=== PATIENT | male | born 1995 | race Caucasian/White ===

== ENCOUNTER 2017-02-14 19:35 | Inpatient (IN) | payer OTHER ==
[~2017-02-14] VITALS: Ht 170.2 cm; Wt 70.9 kg
[2017-02-14 20:00] VITALS: Ht 170.2 cm; Wt 70.9 kg
[2017-02-14 20:55] VITALS: BP 120/61; RESP 18
[2017-02-14] MEDS ORDERED: ACETAMINOPHEN 325 MG TAB PO PRN (21:30)
[2017-02-14] MEDS ORDERED: BISACODYL 10 MG SUPP PR PRN (21:30)
[2017-02-14] MEDS ORDERED: MAGNESIUM HYDROXIDE 30ML CUP PO PRN ×2 (21:30)
[2017-02-14] MEDS ORDERED: DEXTROSE 50% 50 ML SYRINGE IV PRN ×2 (21:30)
[2017-02-14] MEDS ORDERED: GLUCOSE GEL 15 GRAM TUBE PO PRN ×2 (21:30)
[2017-02-14] MEDS ORDERED: GLUCOSE GEL 15 GRAM TUBE BUCCAL PRN (21:30)
[2017-02-14] MEDS ORDERED: CARBOXYMETHYLCELLULOSE 0.5% 0.1 ML OPH BOTH EYES PRN (21:30)
[2017-02-14] MEDS ORDERED: NA PHOSPHATE/BIPHOS 133 ML ENEMA PR PRN (21:30)
[2017-02-14] MEDS ORDERED: GLUCAGON 1 MG INJ IM PRN (21:30)
[2017-02-14] MEDS: oxyCODONE 5 MG TAB PO PRN (21:45)
[2017-02-14] MEDS: Insulin NOVOLOG SS MILD Algorithm (SS with meals and bedtime) SC SCH (21:51)
[2017-02-14 22:29] LABS: ADD UMIC NO; UR BILIRUBIN (Dip) NEGATIVE (NEGATIVE); UR BLOOD (Dip) NEGATIVE (NEGATIVE); UR CLARITY CLEAR (CLEAR); UR COLOR LT. YELLOW (YELLOW); UR GLUCOSE (Dip) NEGATIVE (NEGATIVE); UR KETONES (Dip) NEGATIVE (NEGATIVE); UR LEUKOCYTE ESTERASE (Dip) NEGATIVE (NEGATIVE); UR NITRITE (Dip) NEGATIVE (NEGATIVE); UR TOTAL PROTEIN (Dip) NEGATIVE (NEGATIVE); UR UROBILINOGEN (Dip) 0.2 E.U./dL (0.1-1.0)
[2017-02-14] MEDS: HEPARIN 5,000 UNIT/0.5 ML VIAL SC SCH (22:56)
[2017-02-14] MEDS: SENNA TAB PO SCH (22:58)
[2017-02-14] MEDS: DOCUSATE SODIUM 100 MG CAP PO SCH (22:58)
[2017-02-15] MEDS ORDERED: ACCUCHECK AT 2AM (Patients on SS coverage) XX SCH (02:00)
[2017-02-15 06:55] LABS: ADD SCAN DIFF NO
[2017-02-15] MEDS ORDERED: Insulin NOVOLOG SS MILD Algorithm (SS with meals and bedtime) SC SCH (07:05)
[2017-02-15] MEDS: Insulin NOVOLOG SS MILD Algorithm (SS with meals and bedtime) SC SCH ×3 (07:05→17:05)
[2017-02-15 07:15] LABS: BASOPHILS % 0.4 % (0.0-2.0); EOSINOPHILS # 0.1 10^3/ul (0.0-0.5); HEMATOCRIT 38.5 % (42.0-52.0); HEMOGLOBIN 12.8 g/dl (14.0-18.0); LYMPHOCYTES # 1.3 10^3/ul (0.8-2.9); LYMPHOCYTES % 26.1 % (15.0-51.0); MEAN CORPUSCULAR HEMOGLOBIN 30.8 pg (29.0-33.0); MEAN CORPUSCULAR HGB CONC 33.2 g/dl (32.0-37.0); MEAN CORPUSCULAR VOLUME 92.8 fl (82.0-101.0); MEAN PLATELET VOLUME 9.7 fl (7.4-10.4); MONOCYTE # 0.7 10^3/ul (0.3-0.9); MONOCYTES % 12.9 % (0.0-11.0); NEUTROPHIL # 2.9 10^3/ul (1.6-7.5); NEUTROPHILS % 58.2 % (39.0-77.0); PLATELET COUNT 398 10^3/UL (140-415); RED BLOOD COUNT 4.15 10^6/ul (4.70-6.10); RED CELL DISTRIBUTION WIDTH 13.6 % (11.5-14.5); WHITE BLOOD COUNT 5.1 10^3/ul (4.8-10.8)
[2017-02-15 07:38] LABS: ALBUMIN 4.8 g/dl (3.3-4.9); ALBUMIN/GLOBULIN RATIO 1.6; BILIRUBIN,INDIRECT 0.3 mg/dl (0-1.1); BILIRUBIN,TOTAL 0.3 mg/dl (0.2-1.3); CALCIUM 9.8 mg/dl (8.4-10.2); CREATININE 0.81 mg/dl (0.61-1.24); POTASSIUM 4.6 mmol/L (3.5-5.1); TOTAL PROTEIN 7.8 g/dl (6.1-8.1)
[2017-02-15 08:21] VITALS: BP 120/65; RESP 18
[2017-02-15] MEDS: DOCUSATE SODIUM 100 MG CAP PO SCH ×2 (08:47→21:20)
[2017-02-15] MEDS: PSYLLIUM 28% PACKET PO SCH ×2 (08:48→21:21)
[2017-02-15] MEDS: HEPARIN 5,000 UNIT/0.5 ML VIAL SC SCH ×2 (08:49→21:26)
[2017-02-15] MEDS: LACTULOSE 30ML CUP PO PRN (08:49)
[2017-02-15] MEDS: oxyCODONE 5 MG TAB PO PRN ×2 (08:49→16:51)
[2017-02-15] MEDS ORDERED: HEPARIN 5,000 UNIT/0.5 ML VIAL SC SCH (09:00)
[2017-02-15] MEDS ORDERED: DOCUSATE SODIUM 100 MG CAP PO SCH (09:00)
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
--- NOTE | 2017-02-15 17:40 | QN ---
Documentation Comment [id number] Perez MD Feb 15, 2017 17:40
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
[2017-02-15 20:00] VITALS: BP 126/68; RESP 18
[2017-02-15] MEDS ORDERED: SENNA TAB PO SCH (21:00)
[2017-02-15] MEDS: SENNA TAB PO SCH (21:20)
[2017-02-15] MEDS: FERROUS SULFATE (EC) 325 MG TAB PO SCH (21:20)
[2017-02-16] MEDS: LACTULOSE 30ML CUP PO PRN (08:25)
[2017-02-16] MEDS: PSYLLIUM 28% PACKET PO SCH ×2 (08:25→21:00)
[2017-02-16] MEDS: HEPARIN 5,000 UNIT/0.5 ML VIAL SC SCH ×2 (08:25→21:37)
[2017-02-16] MEDS: DOCUSATE SODIUM 100 MG CAP PO SCH ×2 (08:25→21:00)
[2017-02-16] MEDS: oxyCODONE 5 MG TAB PO PRN ×4 (08:26→21:46)
[2017-02-16] MEDS: FERROUS SULFATE (EC) 325 MG TAB PO SCH ×3 (08:26→21:35)
[2017-02-16] MEDS: ERGOCALCIFEROL 50,000 UNIT CAP PO SCH (08:26)
[2017-02-16] MEDS ORDERED: POLYETHYLENE GLYCOL 17 GM PACKET PO PRN (10:30)
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
[2017-02-16 19:34] VITALS: BP 124/59; RESP 18
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
[2017-02-16] MEDS: SENNA TAB PO SCH (21:00)
[2017-02-16] MEDS ORDERED: ARTIFICIAL TEARS 15 ML OPH BOTH EYES PRN (23:00)
[2017-02-17 07:30] VITALS: BP 111/64; RESP 18
[2017-02-17] MEDS: oxyCODONE 5 MG TAB PO PRN ×2 (07:53→17:02)
[2017-02-17] MEDS: PSYLLIUM 28% PACKET PO SCH ×2 (09:00→20:17)
[2017-02-17] MEDS: DOCUSATE SODIUM 100 MG CAP PO SCH ×2 (09:21→20:16)
[2017-02-17] MEDS: FERROUS SULFATE (EC) 325 MG TAB PO SCH ×3 (09:21→20:17)
[2017-02-17] MEDS: HEPARIN 5,000 UNIT/0.5 ML VIAL SC SCH ×2 (09:27→20:25)
--- NOTE | 2017-02-17 11:57 | CONS ---
Date/Time of Note Date/Time of Note DATE: 02/17/17 TIME: 11:56 Consult Date/Type/Reason Admit Date/Time Feb 14, 2017 at 19:53 Objective Vital Signs Date Time Temp Pulse Resp B/P Pulse Ox O2 Delivery O2 Flow Rate FiO2 02/16/17 19:34 98.5 75 18 124/59 97 Intake and Output 02/16/17 02/16/17 02/17/17 14:59 22:59 06:59 Intake Total 960 ml 600 ml 300 ml Output Total 600 ml 350 ml 950 ml Balance 360 ml 250 ml -650 ml INTERDISCIPLINARY TEAM CONFERENCE BOWEL- Cont BLADDER-Cont OT- DRESSING-cga BATHING-cga TOILETING-cga PT- BED MOBILITY-cga TRANSFERS-min AMBULATION-min SPEECH- COGNITION-mod A/P- Interdisciplinary team conference held today. Please see interdisciplinary sheet. Working toward d.cRosanne on 02/23 with post discharge follow up of physical therapy, occupational therapy. Results/Medications Result Diagram: 02/15/1761902/15/17619 Results 24 hrs Laboratory Tests Test 02/17/17 06:20 Hemoglobin A1c 5.4 Medications Current Medications Miscellaneous Information 1 ea NOTE XX ; Start 02/14/17 at 21:30 Acetaminophen (Tylenol Tab) 650 mg Q6H PRN PO FOR MILD PAIN,SANDHU,FEVER>101.3F; Start 02/14/17 at 21:30 Bisacodyl (Dulcolax Supp) 10 mg DAILY PRN [place] CONSTIPATION; Start 02/14/17 at 21 :30 Eye Lubricant (Refresh Plus) 1 drop TID PRN BOTH EYES FOR DRY EYES; Start 02/14 at 21:30 Ergocalciferol (Drisdol) 50,000 unit We@09 PO Last administered on 02/16/17 08 :26; Admin Dose 50,000 UNIT; Start 02/16/17 at 09:00 Hydromorphone HCl (Dilaudid) 1 mg Q4H PRN IV FOR BREAKTHRU PAIN ONLY; Start 08/21 at 21:30 Lactulose (Enulose) 20 gm DAILY PRN PO CONSTIPATION Last administered on 08:25; Admin Dose 20 GM; Start 02/14/17 at 21:30 Magnesium Hydroxide (Milk Of Mag) 30 ml DAILY PRN PO CONSTIPATION; Start at 21:30 Oxycodone HCl (Roxicodone) 5 mg Q4H PRN PO MILD PAIN LEVEL 1-3 Last administered on 02/16/17 15:35; Admin Dose 5 MG; Start 02/14/17 at 21:30 Oxycodone HCl (Roxicodone) 10 mg Q4H PRN PO MODERATE PAIN Last administered on 02/17/17 07:53; Admin Dose 10 MG; Start 02/14/17 at 21:30 Oxycodone HCl (Roxicodone) 15 mg Q4H PRN PO SEVERE PAIN Last administered on 08:26; Admin Dose 15 MG; Start 02/14/17 at 21:30; Status Future Hold Psyllium Hydrophilic Mucilloid (Metamucil) 1 pkt BID PO Last administered on 08:25; Admin Dose 1 PKT; Start 02/15/17 at 09:00 Sodium Biphosphate/ Sodium Phosphate (Fleet Enema) 133 ml DAILY PRN [place] CONSTIPATION; Start 02/14/17 at 21:30 Docusate Sodium (Colace) 100 mg BID PO Last administered on 02/17/17 09:21; Admin Dose 100 MG; Start 02/14/17 at 21:52 Senna (Senokot) 1 tab HS PO Last administered on 02/15/17 21:20; Admin Dose 1 TAB; Start 02/14/17 at 22:37 Heparin Sodium (Porcine) (Heparin (5000 Units/0.5 ml)) 5,000 unit Q12 SC Last administered on 02/17/17 09:27; Admin Dose 5,000 UNIT; Start 02/14/17 at 22:37 Ferrous Sulfate (Ferrous Sulfate (Ec)) 325 mg TID PO Last administered on 09:21; Admin Dose 325 MG; Start 02/15/17 at 21:00 Polyethylene Glycol (Miralax) 17 gm DAILY PRN PO CONSTIPATION; Start 02/16/17 at 10:30 Eye Lubricant (Artificial Tears Oph) 2 drop Q4H PRN BOTH EYES DRY EYES; Start 02/16/17 at 23:00 AURORA ZUÑIGA MD Feb 17, 2017 11:57
[2017-02-17] MEDS ORDERED: HYDROmorphONE 1 MG/ML SYG IV STA (17:12)
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
[2017-02-17 20:00] VITALS: BP 125/69; RESP 18
[2017-02-17] MEDS: SENNA TAB PO SCH (20:16)
[2017-02-18 07:57] LABS: ALBUMIN 4.2 g/dl (3.3-4.9); ALBUMIN/GLOBULIN RATIO 1.5; BILIRUBIN,INDIRECT 0.2 mg/dl (0-1.1); BILIRUBIN,TOTAL 0.2 mg/dl (0.2-1.3); CALCIUM 9.8 mg/dl (8.4-10.2); CREATININE 0.89 mg/dl (0.61-1.24); POTASSIUM 4.2 mmol/L (3.5-5.1)
[2017-02-18 08:00] VITALS: BP 119/70; PULSE 83; RESP 21
[2017-02-18] MEDS: PSYLLIUM 28% PACKET PO SCH ×2 (09:17→20:37)
[2017-02-18] MEDS: DOCUSATE SODIUM 100 MG CAP PO SCH ×2 (09:17→20:37)
[2017-02-18] MEDS: FERROUS SULFATE (EC) 325 MG TAB PO SCH ×3 (09:17→20:37)
[2017-02-18] MEDS: HEPARIN 5,000 UNIT/0.5 ML VIAL SC SCH ×2 (09:18→20:37)
[2017-02-18] MEDS: HYDROmorphONE 1 MG/ML SYG IV PRN ×2 (09:18→20:32)
[2017-02-18] MEDS: oxyCODONE 5 MG TAB PO PRN ×2 (09:43→16:35)
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
[2017-02-18] MEDS: LIDOCAINE 5% PATCH TD PRN (12:47)
[2017-02-18] MEDS: SENNA TAB PO SCH (20:37)
[2017-02-18 21:08] VITALS: BP 116/60; RESP 18
[2017-02-19 07:30] VITALS: BP 113/69; RESP 18
[2017-02-19] MEDS: PSYLLIUM 28% PACKET PO SCH ×2 (09:00→20:50)
[2017-02-19] MEDS: DOCUSATE SODIUM 100 MG CAP PO SCH ×2 (09:00→20:50)
[2017-02-19] MEDS: HEPARIN 5,000 UNIT/0.5 ML VIAL SC SCH ×2 (09:49→20:58)
[2017-02-19] MEDS: FERROUS SULFATE (EC) 325 MG TAB PO SCH ×3 (09:49→20:50)
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
[2017-02-19 19:44] VITALS: BP 108/63; RESP 18
[2017-02-19] MEDS: HYDROmorphONE 1 MG/ML SYG IV PRN (20:45)
[2017-02-19] MEDS: SENNA TAB PO SCH (20:59)
[2017-02-20] MEDS: HYDROmorphONE 1 MG/ML SYG IV PRN ×3 (06:49→20:10)
[2017-02-20] MEDS: DOCUSATE SODIUM 100 MG CAP PO SCH ×2 (08:48→20:13)
[2017-02-20] MEDS: FERROUS SULFATE (EC) 325 MG TAB PO SCH ×3 (08:48→20:13)
[2017-02-20] MEDS: PSYLLIUM 28% PACKET PO SCH ×2 (08:53→20:13)
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
[2017-02-20] MEDS ORDERED: ONDANSETRON 4 MG INJ IV PRN (10:30)
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
[2017-02-20] MEDS: ENOXAPARIN 30 MG/0.3 ML SYG SC SCH (12:30)
[2017-02-20] MEDS: SENNA TAB PO SCH (20:13)
[2017-02-20 20:27] VITALS: BP 112/59; RESP 16
[2017-02-21 07:30] VITALS: BP 111/64; RESP 18
[2017-02-21] MEDS: HYDROmorphONE 1 MG/ML SYG IV PRN ×4 (08:28→17:48)
[2017-02-21] MEDS: ERGOCALCIFEROL 50,000 UNIT CAP PO SCH (08:30)
[2017-02-21] MEDS: FERROUS SULFATE (EC) 325 MG TAB PO SCH ×3 (08:30→20:28)
[2017-02-21] MEDS: DOCUSATE SODIUM 100 MG CAP PO SCH ×2 (08:30→21:00)
[2017-02-21] MEDS: ENOXAPARIN 30 MG/0.3 ML SYG SC SCH (08:31)
[2017-02-21] MEDS: PSYLLIUM 28% PACKET PO SCH ×2 (11:55→20:31)
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
[2017-02-21] MEDS: TOPIRAMATE 25 MG TAB PO SCH (17:42)
[2017-02-21] MEDS ORDERED: HYDROmorphONE 2 MG/ML SYG IV STA (18:38)
--- NOTE | 2017-02-21 18:51 | RADRPT ---
PROCEDURE: Noncontrast CT Head. CLINICAL INDICATION: Headache. Postoperative. TECHNIQUE: Noncontrast CT of the head was obtained. The administered radiation dose was CTDI vol = 37.86 mGy, DLP = 739.96 mGy-cm. One or more of the following dose reduction techniques were used: Au tomated exposure control, Adjustment of the mA and/or kV according to patient size, or Use of iterat jagruti reconstruction technique. COMPARISON: There are no similar studies submitted for comparison. FINDINGS: There is a left frontal temporal parietal craniectomy with cranioplasty. There is mild medial bowin g of the cranioplasty. There is minimal subjacent left temporal parietal chronic subdural fluid col lection measuring up to 2 mm. There is 4 mm of rightward midline shift. There is focal encephalomalacia and subcortical gliosis within the left superior temporal lobe. There are right frontal serg holes with subjacent right frontal lobe coarse calcifications extending from the dura. There is also adjacent to right frontal subcortical hypoattenuation which may repre sent vasogenic edema or gliosis. There is no loss of kwon-white differentiation to suggest acute territorial infarction. There is no acute intracranial hemorrhage. The orbits are within normal limits. The paranasal sinuses are well aerated. No destructive osseous lesion is identified. IMPRESSION: 1. No acute intracranial hemorrhage. 2. Left frontal temporal craniectomy/cranioplasty with mild medial bowing of the cranioplasty with 4 mm of rightward midline shift. This may be seen with paradoxical herniation. Correlate clinically. 3. Left temporal lobe encephalomalacia and subcortical gliosis. 4. Right frontal serg holes with adjacent dural coarse calcifications. There is also subjacent rig ht frontal subcortical hypoattenuation which may be related to vasogenic edema or subcortical gliosi s. Comparison with prior imaging may be helpful. MRI of the brain with and without contrast may be performed as clinically warranted. 5. There is a 2 mm left temporal parietal chronic subdural fluid collection subjacent to the cranio plasty. Further findings as detailed above. RPTAT: PP .Jae Bianchi MD, MD Date Time Electronically viewed and signed by .Jae Bianchi MD, on 02/21/2017 18:51 .F/
[2017-02-21 19:32] VITALS: BP 110/62; RESP 18
[2017-02-21] MEDS: SENNA TAB PO SCH (21:00)
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
[2017-02-22 07:58] VITALS: BP 114/57; RESP 18
[2017-02-22] MEDS: TOPIRAMATE 25 MG TAB PO SCH ×2 (09:00→11:10)
[2017-02-22] MEDS: DOCUSATE SODIUM 100 MG CAP PO SCH ×2 (09:37→21:00)
[2017-02-22] MEDS: FERROUS SULFATE (EC) 325 MG TAB PO SCH ×3 (09:38→20:48)
[2017-02-22] MEDS: oxyCODONE 5 MG TAB PO PRN (09:38)
[2017-02-22] MEDS: ENOXAPARIN 30 MG/0.3 ML SYG SC SCH (09:39)
[2017-02-22] MEDS: PSYLLIUM 28% PACKET PO SCH ×2 (09:39→20:48)
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
[2017-02-22] MEDS: HYDROmorphONE 2 MG/ML SYG IV PRN ×3 (11:07→21:45)
[2017-02-22] MEDS: LIDOCAINE 5% PATCH TD PRN (11:07)
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
[2017-02-22 20:00] VITALS: BP 112/69; RESP 18
[2017-02-22] MEDS: SENNA TAB PO SCH (21:00)
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
[2017-02-23 07:33] VITALS: BP 122/67; RESP 18
[2017-02-23] MEDS: FERROUS SULFATE (EC) 325 MG TAB PO SCH ×3 (09:23→21:07)
[2017-02-23] MEDS: DOCUSATE SODIUM 100 MG CAP PO SCH ×2 (09:23→21:07)
[2017-02-23] MEDS: oxyCODONE 5 MG TAB PO PRN (09:23)
[2017-02-23] MEDS: LIDOCAINE 5% PATCH TD PRN (09:23)
[2017-02-23] MEDS: TOPIRAMATE 25 MG TAB PO SCH (09:23)
[2017-02-23] MEDS: ENOXAPARIN 30 MG/0.3 ML SYG SC SCH (09:24)
[2017-02-23] MEDS: PSYLLIUM 28% PACKET PO SCH ×2 (09:24→21:08)
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
[2017-02-23] MEDS: HYDROmorphONE 4 MG TAB PO PRN ×2 (12:39→21:07)
[2017-02-23 20:00] VITALS: BP 113/62; RESP 18
[2017-02-23] MEDS: SENNA TAB PO SCH (21:07)
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
[2017-02-24 07:30] VITALS: BP 108/56; RESP 18
[2017-02-24] MEDS: FERROUS SULFATE (EC) 325 MG TAB PO SCH (08:10)
[2017-02-24] MEDS: PSYLLIUM 28% PACKET PO SCH (08:10)
[2017-02-24] MEDS: DOCUSATE SODIUM 100 MG CAP PO SCH (08:10)
[2017-02-24] MEDS: TOPIRAMATE 25 MG TAB PO SCH (08:10)
[2017-02-24] MEDS: HYDROmorphONE 4 MG TAB PO PRN (08:11)
[2017-02-24] MEDS: ENOXAPARIN 30 MG/0.3 ML SYG SC SCH (08:13)
--- NOTE | 2017-02-24 09:53 | PN ---
Date/Time of Note Date/Time of Note DATE: 02/24/17 TIME: 09:52 Assessment/Plan Lines/Catheters IV Catheter Type (from Nrs): Saline Lock Urinary Cath still in place: No Exam/Review of Systems Vital Signs Vitals Vital Signs Date Time Temp Pulse Resp B/P Pulse Ox O2 Delivery O2 Flow Rate FiO2 02/24/17 07:30 98.0 76 18 108/56 97 Intake and Output 02/23/17 02/23/17 02/24/17 15:00 23:00 07:00 Intake Total 1200 ml 600 ml 380 ml Balance 1200 ml 600 ml 380 ml Medications Medications Current Medications Miscellaneous Information 1 ea NOTE XX ; Start 02/14/17 at 21:30 Acetaminophen (Tylenol Tab) 650 mg Q6H PRN PO FOR MILD PAIN,SANDHU,FEVER>101.3F; Start 02/14/17 at 21:30 Bisacodyl (Dulcolax Supp) 10 mg DAILY PRN [place] CONSTIPATION; Start 02/14/17 at 21 :30 Eye Lubricant (Refresh Plus) 1 drop TID PRN BOTH EYES FOR DRY EYES; Start 02/14 at 21:30 Ergocalciferol (Drisdol) 50,000 unit We@09 PO Last administered on 02/21/17 08 :30; Admin Dose 50,000 UNIT; Start 02/16/17 at 09:00; Status Future hold Lactulose (Enulose) 20 gm DAILY PRN PO CONSTIPATION Last administered on 08:25; Admin Dose 20 GM; Start 02/14/17 at 21:30 Magnesium Hydroxide (Milk Of Mag) 30 ml DAILY PRN PO CONSTIPATION; Start at 21:30 Oxycodone HCl (Roxicodone) 5 mg Q4H PRN PO MILD PAIN LEVEL 1-3 Last administered on 02/17/17 17:02; Admin Dose 5 MG; Start 02/14/17 at 21:30 Oxycodone HCl (Roxicodone) 10 mg Q4H PRN PO MODERATE PAIN Last administered on 02/23/17 09:23; Admin Dose 10 MG; Start 02/14/17 at 21:30 Oxycodone HCl (Roxicodone) 15 mg Q4H PRN PO SEVERE PAIN Last administered on 6/ 14/17at 08:26; Admin Dose 15 MG; Start 02/14/17 at 21:30; Status Future Hold Psyllium Hydrophilic Mucilloid (Metamucil) 1 pkt BID PO Last administered on 08:10; Admin Dose 1 PKT; Start 02/15/17 at 09:00 Sodium Biphosphate/ Sodium Phosphate (Fleet Enema) 133 ml DAILY PRN [place] CONSTIPATION; Start 02/14/17 at 21:30 Docusate Sodium (Colace) 100 mg BID PO Last administered on 02/24/17 08:10; Admin Dose 100 MG; Start 02/14/17 at 21:52 Senna (Senokot) 1 tab HS PO Last administered on 02/23/17 21:07; Admin Dose 1 TAB; Start 02/14/17 at 22:37 Ferrous Sulfate (Ferrous Sulfate (Ec)) 325 mg TID PO Last administered on 08:10; Admin Dose 325 MG; Start 02/15/17 at 21:00 Polyethylene Glycol (Miralax) 17 gm DAILY PRN PO CONSTIPATION; Start 02/16/17 at 10:30 Eye Lubricant (Artificial Tears Oph) 2 drop Q4H PRN BOTH EYES DRY EYES; Start 02/16/17 at 23:00 Lidocaine (Lidoderm) 1 patch DAILY PRN TD PAIN Last administered on 02/23/17 09:23; Admin Dose 1 PATCH; Start 02/18/17 at 11:30 Enoxaparin Sodium (Lovenox) 30 mg DAILY SC Last administered on 02/24/17 08:13 ; Admin Dose 30 MG; Start 02/20/17 at 12:00 Ondansetron HCl (Zofran Inj) 4 mg Q8H PRN IV NAUSEA AND/OR VOMITING Last administered on 02/20/17 10:49; Admin Dose 4 MG; Start 02/20/17 at 10:30 Topiramate (Topamax) 25 mg DAILY PO Last administered on 02/24/17 08:10; Admin Dose 25 MG; Start 02/21/17 at 19:00 Hydromorphone HCl (Dilaudid) 4 mg Q4H PRN PO SEVERE PAIN LEVEL 7-10 Last administered on 02/24/17 08:11; Admin Dose 4 MG; Start 02/23/17 at 10:30 BLAKE GU 22, 2017 09:53
== END 2017-02-24 10:15 | disposition home health service (06) | DRG 946 ==
LOC: VRC 19:53
PROVIDERS: ADMIT Physical Medicine & Rehabilitation; ATTEND Internal Medicine Nephrology
PROC: F07Z5FZ Bed Mobility Treatment using Assistive, Adaptive, Supportive or Protective Equipment (ICD-10-PCS; principal; 2017-02-14)
PROC: F07Z8FZ Transfer Training Treatment using Assistive, Adaptive, Supportive or Protective Equipment (ICD-10-PCS; 2017-02-14)
PROC: F07Z9FZ Gait Training/Functional Ambulation Treatment using Assistive, Adaptive, Supportive or Protective Equipment (ICD-10-PCS; 2017-02-14)
PROC: F08Z2FZ Grooming/Personal Hygiene Treatment using Assistive, Adaptive, Supportive or Protective Equipment (ICD-10-PCS; 2017-02-14)
PROC: F08Z0FZ Bathing/Showering Techniques Treatment using Assistive, Adaptive, Supportive or Protective Equipment (ICD-10-PCS; 2017-02-14)
PROC: F08Z1FZ Dressing Techniques Treatment using Assistive, Adaptive, Supportive or Protective Equipment (ICD-10-PCS; 2017-02-14)
DX: S06.6X9D Traumatic subarachnoid hemorrhage with loss of consciousness of unspecified duration, subsequent encounter (principal); Z86.718 Personal history of other venous thrombosis and embolism; S42.002D Fracture of unspecified part of left clavicle, subsequent encounter for fracture with routine healing; S06.2X9D Diffuse traumatic brain injury with loss of consciousness of unspecified duration, subsequent encounter; V89.2XXD Person injured in unspecified motor-vehicle accident, traffic, subsequent encounter
CPT/HCPCS: 70450; 80053; 81003; 82962; 83036; 85025; 87081; 87086; 92507; 92523; 92526; 92610; 97110; 97112; 97116; 97150; 97163; 97167; 97530; 97535; J1170; J1644; J1650; J1815; J2405